=== PATIENT | male | born 1965 | race Caucasian/White ===

== ENCOUNTER → 2016-12-16 | Outpatient (CLI) | payer BC ==
--- NOTE | 2016-12-16 14:51 | PCVCIMAG ---
APPROVED REPORT Exam: Stress Echocardiogram Indication: Paroxysmal a fib, sick sinus syndrome, pacemaker Stress Nurse: Caryn Dobbins RN Status: routine HR: 52 bpm Rhythm: Bradycardia Medical History Medical History: Pacemaker in situ, Atrial Fibrillation-paroxysmal Procedure The patient underwent an Exercise Stress Test using the Murali Protocol. Blood pressure, heart rate, and EKG were monitored. An Echocardiogram was performed by electrical manufacturing technician in four stages in quad fashion. At peak stress, four selected images were obtained and placed side by side with resting images for comparison. Stress Test Details Stress Test: Exercise stress testing was performed using a Murali protocol. HR Resting HR: 52 bpmMax Heart Rate (APMHR): 171 bpm Max HR Achieved: 136 bpmTarget HR (85% APMHR): 145 bpm % of APMHR: 79 Recovery HR: 75 bpm HR response to stress: Normal HR response to stress BP Resting BP: 108/74 mmHg Max BP: 166/70 mmHg Recovery BP: 132/70 mmHg ECG Resting ECG: Sinus Rhythm Stress ECG: Sinus Rhythm Arrhythmia: None Recovery ECG: paced rhythm that resolved to NSR Clinical Reason for Termination: Maximal effort Stress Symptoms: None Exercise duration: 11 min 05 sec Highest Stage Achieved: Stage 4: 4.2 mph at 16% grade. Exercise capacity: 13.4 METs Overall Exercise Capacity for Age: Normal Angina Score: None Stress ECG Conclusion Clinical: Non-ischemic ECG: Non-diagnostic due to ventricular paced rhythm Pre-Stress Echo The resting Echocardiogram showed normal left ventricular contractility with an estimated Ejection Fraction of about >55%. Normal wall motion in all segments on baseline images. Post-Stress Echo The stress Echocardiogram showed normal left ventricular contractility with an estimated Ejection Fraction of about 60-65%. Normal augmentation of wall motion in all segments on post stress images. Clinical Normal augmentation of myocardial wall segments using a 17 segment model. No clinical or ECG evidence for ischemia. Conclusion Clinical Response: Non-ischemic Exercise Capacity: Superior Stress ECG Response: Non-ischemic Stress Echo Images: Non-ischemic Pacemaker leads noted with mild-moderate tricuspid regurgitation and PAP of 32 mmHg. Normal stress echocardiogram with near maximal exercise stress. Other Information Study Quality: Adequate <Conclusion> Pacemaker leads noted with mild-moderate tricuspid regurgitation and PAP of 32 mmHg. Normal stress echocardiogram with near maximal exercise stress.
== END | disposition home or self-care (01) ==
LOC: PCVCIMAG 13:50
PROVIDERS: ATTEND Internal Medicine
DX: I07.1 Rheumatic tricuspid insufficiency (principal); I48.0 Paroxysmal atrial fibrillation; I49.5 Sick sinus syndrome; Z95.0 Presence of cardiac pacemaker
CPT/HCPCS: 93325; 93351